=== PATIENT | female | born 1955 | race Caucasian/White ===

== ENCOUNTER 2022-04-08 17:36 | Emergency (ER) | payer MEDICARE ==
[2022-04-08 18:16] LABS: ESTIMATED GFR 55 mL/min (>60)
[2022-04-08 18:22] VITALS: BP 158/82; PULSE 81
== END 2022-04-08 18:40 | disposition home or self-care (01) ==
LOC: FB.ED 17:36
DX: E11.22 Type 2 diabetes mellitus with diabetic chronic kidney disease (principal); E78.00 Pure hypercholesterolemia, unspecified; I10 Essential (primary) hypertension; Z79.899 Other long term (current) drug therapy; Z79.82 Long term (current) use of aspirin; Z79.84 Long term (current) use of oral hypoglycemic drugs; Z90.49 Acquired absence of other specified parts of digestive tract
CPT/HCPCS: 36415; 80048; 85025; 99283